=== PATIENT | female | born 2000 | race Two or more races ===

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

== ENCOUNTER 2019-06-16 17:48 | Emergency (ER) | payer SELFPAY ==
[~2019-06-16] VITALS: Ht 165.1 cm; Wt 72.6 kg
[2019-06-16 17:54] VITALS: BP 145/76
--- NOTE | 2019-06-16 18:18 | NUR ---
Patient discharged to home in stable condition. Written and verbal after care instructions given. Patient verbalizes understanding of instruction.
== END 2019-06-16 18:18 | disposition home or self-care (01) ==
LOC: ER 17:48
DX: B00.9 Herpesviral infection, unspecified (principal); L01.00 Impetigo, unspecified

== ENCOUNTER 2021-04-08 15:06 | Emergency (ER) | payer SELFPAY ==
[~2021-04-08] VITALS: Ht 165.1 cm; Wt 65.8 kg
[2021-04-08 16:37] VITALS: BP 129/82
[2021-04-08] MEDS ORDERED: CARI350T PO ×2 (16:50)
--- NOTE | 2021-04-08 17:01 | NUR ---
Patient discharged to home in stable condition. Written and verbal after care instructions given. Patient verbalizes understanding of instruction.
== END 2021-04-08 17:03 | disposition home or self-care (01) ==
LOC: ER 15:10
DX: S73.101A Unspecified sprain of right hip, initial encounter (principal); Z79.899 Other long term (current) drug therapy; X50.1XXA Overexertion from prolonged static or awkward postures, initial encounter; Y93.89 Activity, other specified; Y92.89 Other specified places as the place of occurrence of the external cause; Y99.8 Other external cause status